=== PATIENT | male | born 1995 | race Two or more races ===

== ENCOUNTER 2018-08-01 04:41 | Emergency (ER) | payer SELFPAY ==
[~2018-08-01] VITALS: Ht 167.6 cm; Wt 63.1 kg
[2018-08-01 04:44] VITALS: BP 114/76
[2018-08-01] MEDS ORDERED: LIDOCAINE-MPF 1%, 5ML INFIL ONE (05:00)
[2018-08-01] MEDS ORDERED: BUPIVACAINE 0.25% INFIL ONE (05:00)
[2018-08-01] MEDS ORDERED: LIDOCAINE-MPF 1%, 5ML ONE (05:18)
[2018-08-01] MEDS ORDERED: BUPIVACAINE 0.25% ONE (05:19)
== END 2018-08-01 06:01 | disposition home or self-care (01) ==
LOC: ED 05:55
DX: S01.112A Laceration without foreign body of left eyelid and periocular area, initial encounter (principal); W01.198A Fall on same level from slipping, tripping and stumbling with subsequent striking against other object, initial encounter; Y93.89 Activity, other specified; Y92.091 Bathroom in other non-institutional residence as the place of occurrence of the external cause; Y99.8 Other external cause status
CPT/HCPCS: 12013; 99283; J3490